=== PATIENT | female | born 2005 | race African-American/Black ===

== ENCOUNTER 2024-11-14 16:37 | Emergency (ER) | payer SELFPAY ==
[~2024-11-14] VITALS: Ht 165.1 cm; Wt 52.1 kg
[2024-11-14 16:48] VITALS: O2SAT 100
[2024-11-14] MEDS ORDERED: IBUP-2029 MT (17:40)
[2024-11-14] MEDS: IBUPROFEN 600MG TABLET PO ONE (18:17)
[2024-11-14 18:27] VITALS: BP 116/77; PULSE 71; RESP 18; TEMP 37.1; O2SAT 100
== END 2024-11-14 18:30 | disposition home or self-care (01) ==
LOC: ER 16:37
DX: S00.512A Abrasion of oral cavity, initial encounter (principal); S09.90XA Unspecified injury of head, initial encounter; R68.84 Jaw pain; Y08.89XA Assault by other specified means, initial encounter; Y93.89 Activity, other specified; Y92.89 Other specified places as the place of occurrence of the external cause; Y99.8 Other external cause status
CPT/HCPCS: 81025; 99282